=== PATIENT | female | born 1980 | race Caucasian/White ===

== ENCOUNTER 2017-03-09 11:52 | Emergency (ER) | payer BC, OTHER, SELFPAY ==
[2017-03-09 12:21] LABS: #Eosinphils 0.1 thou/uL (0.0-0.7); #Monocytes 0.6 thou/uL (0.11-0.59); #Neutrophils 6.9 thou/uL (1.40-6.50); %Basophils 0.3 % (0.0-1.0); %Eosinophils 1.1 % (0.0-10.0); %Lymphocytes 20.9 % (21.0-51.0); %Monocytes 6.6 % (0.0-10.0); Hematocrit 40.7 % (36.0-47.0); Mean Platelet Volume 7.5 fL (7.4-10.4); Red Blood Cell (RBC) Count 4.25 mill/uL (4.20-5.40); White Blood Cell (WBC) Count 9.7 thou/uL (4.8-10.8)
[2017-03-09 12:27] LABS: Bilirubin Negative (Negative); Blood, Urine Large (Negative); Glucose, Urine (Dipstick) Negative (Negative); Ketone, Urine Negative (Negative); Nitrite Positive (Negative); Protein, Urine (Dipstick) 100 mg/dL (Neg-Trace)
[2017-03-09 12:29] LABS: Bacteria/HPF 4+ HPF (None Seen); Hyaline Casts/LPF 0-3 HYALINE CAST LPF (0-3 Hyaline); Squamous Epithelial 0-3 HPF (0-3)
[2017-03-09 12:37] LABS: ALT (SGPT) 14 U/L (8-55); AST (SGOT) 15 U/L (5-34); Alkaline Phosphatase 40 U/L (40-150); Anion Gap 11 mmol/L (10-20); BUN (Urea Nitrogen) 13 mg/dL (7.0-18.7); Bilirubin, Total 0.4 mg/dL (0.2-1.2); Calc. Creatinine Clearance 0 mL/min (70-130); Calcium 8.9 mg/dL (7.8-10.44); Carbon Dioxide 26 mmol/L (22-29); Chloride 107 mmol/L (98-107); Estimated GFR-MDRD Greater than 90; Globulin 3.2 g/dL (2.4-3.5); Protein, Total 7.2 g/dL (6.0-8.3)
[2017-03-09 12:45] LABS: Yeast-All Forms None Seen HPF (None Seen)
[2017-03-09] MEDS ORDERED: Ketorolac Tromethamine 30 MG/ML VIAL ONE (13:32)
[2017-03-09] MEDS ORDERED: Ondansetron HCl/PF 4 MG/2 ML Vial ONE (13:32)
--- NOTE | 2017-03-09 15:26 | CT ---
ABDOMEN CT WITHOUT CONTRAST PELVIC CT WITHOUT CONTRAST: Date: 03/09/17 HISTORY: Right-sided abdominal pain. Patient has a past medical history of renal calculi. COMPARISON: 03/07/14. TECHNIQUE: Abdomen and pelvic CT are performed without IV contrast, utilizing renal stone protocol. Coronal refo rmatted images are submitted for interpretation. FINDINGS: ABDOMEN CT: Lung bases are clear. Heart size is within normal limits. No significant pericardial fluid. Descendin g thoracic aorta and the abdominal aorta have an overall normal caliber. No periaortic fat stranding. Decreased intra-abdominal fat limits evaluation for inflammatory change. No mesenteric mass, lymphade nopathy, free air, or free fluid. Limited evaluation of the solid organs by the lack of IV contrast. No solid organ abnormality. Gallbladder is unremarkable. Symmetric attenuation of psoas muscles. Limited evaluation of the alimentary canal due to lack of oral contrast. No evidence of bowel obstru ction. Ileocecal junction is normal. Normal caliber appendix. Scattered fecal material in a nondistended, nondilated colon. Mild dilatation of the right renal pelvis and right intrarenal collecting system. There is also mild asymmetric dilatation and prominence of the proximal right ureter. There is no evidence of an obstruc ting calculus. The mid to distal right ureter is decompressed. The left intra and extrarenal collecti ng system is unremarkable. PELVIC CT: Uterus and adnexal structures are grossly unremarkable. No pelvic mass, lymphadenopathy, or free air. No significant free fluid. No calcifications within the urinary bladder. There are no lytic or blastic lesions in the osseous structures. IMPRESSION: Evidence for mild right-sided obstructive uropathy and proximal hydroureter. There is no associated o bstructing calculus. Correlate for possible recently passed calculus. Nonemergent IVP can be performe d. POS: [facility]
== END 2017-03-09 15:01 | disposition home or self-care (01) ==
LOC: ERS 11:52
DX: N12 Tubulo-interstitial nephritis, not specified as acute or chronic (principal); J45.909 Unspecified asthma, uncomplicated
CPT/HCPCS: 36415; 74176; 80053; 81003; 81015; 81025; 83690; 85025; 96365; 96375; J0696; J1885; J2405